=== PATIENT | female | born 1975 | race Caucasian/White ===

== ENCOUNTER → 2017-11-30 | Outpatient (CLI) | payer BC ==
[~2017-11-30] MED LIST: ACET1TAB43 PO; CLIN300C3 PO; CYCL10TA9 PO; HYDR1TAB PO; LISI1TAB10 PO; NAPR-1071 PO; NAPR-243 PO; NFPRILOC40 PO; THYROID MED PO
--- NOTE | 2017-11-30 10:39 | Diagnostic Imaging Report ---
INDICATION: Constipation and abdominal pain. TIME OF EXAM: 10:33 AM FINDINGS: There are surgical clips in the gallbladder fossa. The bowel gas pattern is nonobstructive. No pathologic calcifications are seen. No free air is identified. IMPRESSION: No acute feature is detected. Dictated by: Dictated on workstation # [id number]
== END ==
LOC: RAD 09:58
PROVIDERS: ATTEND Nurse Practitioner Family
DX: K59.00 Constipation, unspecified (principal)
CPT/HCPCS: 74019

== ENCOUNTER 2017-12-25 11:30 | Outpatient (CLI) | payer BC ==
[~2017-12-25] VITALS: Ht 162.6 cm; Wt 159.7 kg
[2017-12-25] MEDS ORDERED: OMEP40CA36 PO (12:10)
[2017-12-25] MEDS ORDERED: VITA1TAB17 PO (12:10)
[2017-12-25] MEDS ORDERED: CHOL200014 PO (12:10)
[2017-12-25] MEDS ORDERED: LEVO125T6 PO (12:10)
[2017-12-25] MEDS ORDERED: SPIR100T2 PO (12:10)
== END 2017-12-25 12:25 ==
LOC: PREOP 11:30
PROVIDERS: ATTEND Surgery
DX: Z01.818 Encounter for other preprocedural examination (principal); R19.4 Change in bowel habit; K21.9 Gastro-esophageal reflux disease without esophagitis

== ENCOUNTER 2017-12-31 08:24 | Day surgery (SDC) | payer BC ==
[~2017-12-31] VITALS: Ht 162.6 cm; Wt 159.7 kg
[~2017-12-31 08:24] MED LIST changes: +CHOL200014 PO; +LEVO125T6 PO; +OMEP40CA36 PO; +SPIR100T2 PO; +VITA1TAB17 PO
--- OUTSIDE RECORDS SUMMARY | 2017-12-31 08:28 | XMS REPORT | Continuity of Care Document ---
Author Author [facility] Organization [facility] Address Unknown Phone Unavailable Allergies Active Description Code Type Severity Reaction Onset Reported/Identified Relationship to Patient Clinical Status Yes No Known Drug Allergies [id number] Drug Allergy Unknown N/A 10/20/2008 Medications There is no data. Problems Date Dx Coded Attending Type Code Diagnosis Diagnosed By 02/03/2016 ANTHONY PERALES APRN Ot M54.12 RADICULOPATHY, CERVICAL REGION 02/04/2016 ANTHONY PERALES APRN Ot M54.12 12/03/2017 RAGHU LARA Ot K59.00 CONSTIPATION, UNSPECIFIED 12/13/2017 RAGHU LARA Ot K59.00 CONSTIPATION, UNSPECIFIED Procedures There is no data. Results There is no data. Encounters ACCT No. Visit Date/Time Discharge Status Pt. Type Provider Facility Loc./Unit Complaint [id number] 11/30/2017 09:58:00 11/30/2017 23:59:59 CLS Outpatient RAGHU LARA [facility] RAD ABD PAIN [id number] 02/03/2016 12:03:00 02/03/2016 13:20:00 DIS Emergency ANTHONY PERALES APRN [facility] ER SOA/CHEST PAIN [id number] 12/31/2017 09:30:00 PEN Preadmit KP BRENNAN, VIKKI Geiger [facility] ENDO CHANGE IN BOWEL/GERD
[2017-12-31 08:40] VITALS: BP 150/101
[2017-12-31] MEDS ORDERED: NS IV 500 ML 500 ML IV PRN (08:42)
[2017-12-31] MEDS ORDERED: HURRICAINE EXT TUBE (BENZOCAINE) XX PRN (08:45)
--- NOTE | 2017-12-31 09:32 | History & Physicial ---
History of Present Illness History of Present Illness Reason for visit/HPI to undergo an upper endoscopy regarding symptoms of reflux disease and concomitant colonoscopy to investigate a change in her bowel habits. Date of Admission 12/31/17 Date Seen by Provider: Dec 31, 2017 Time Seen by Provider: 09:31 I consulted on this patient on 12/31/17 09:31 Attending Physician Vikki Goodrich MD Admitting Physician Henry Christian DO Consult Allergies and Home Medications Allergies Coded Allergies: No Known Drug Allergies (Verified , 10/20/08) Home Medications Cholecalciferol (Vitamin D3) 2,000 Unit Tablet, 2,000 UNIT PO DAILY, (Reported) Levothyroxine Sodium 125 Mcg Tablet, 125 MCG PO DAILY, (Reported) Omeprazole 40 Mg Capsule.dr, 40 MG PO DAILY PRN for HEARTBURN, (Reported) Spironolactone 100 Mg Tablet, 100 MG PO DAILY, (Reported) Vitamin B Complex 1 Each Tablet, 1 EACH PO DAILY, (Reported) Past Fcqxfbu-Fnocnn-Noaznk Hx Patient Social History Marrital Status: single Employed/Student: employed Alcohol Use: Denies Use Recreational Drug Use: No Smoking Status: Never a Smoker Recent Foreign Travel: No Contact w/other who traveled: No Recent Hopitalizations: No Recent Infectious Disease Expo: No Seasonal Allergies Seasonal Allergies: Yes Surgeries Yes Section, Gallbladder Respiratory No Cardiovascular Yes Hypertension Neurological No Reproductive System Hx Reproductive Disorders: No Sexually Transmitted Disease: No Gastrointestinal Yes Gastroesophageal Reflux, Chronic Constipation Constitutional: no symptoms reported EENTM: no symptoms reported Respiratory: no symptoms reported Cardiovascular: no symptoms reported Gastrointestinal: see HPI Genitourinary: no symptoms reported Musculoskeletal: no symptoms reported Skin: no symptoms reported Psychiatric/Neurological: No Symptoms Reported Physical Exam Vital Signs Vital Signs - First Documented 12/31/17 08:40 Temp 98.2 Pulse 81 Resp 20 B/P (MAP) 150/101 (117) Pulse Ox 96 O2 Delivery Room Air Capillary Refill : General Appearance: No Apparent Distress HEENT: Normal ENT Inspection Neck: Normal Inspection Respiratory: Lungs Clear Cardiovascular: Regular Rate, Rhythm Gastrointestinal: Non Tender, Soft Rectal: Deferred Extremity: Normal Inspection Neurologic/Psychiatric: Alert, Oriented x3 Skin: Warm/Dry Assessment/Plan Assessment and Plan lady with symptoms of reflux disease and a change in bowel habits. 4 concomitant upper endoscopy with colonoscopy Problems: VIKKI GOODRICH MD Dec 31, 2017 9:32 am
--- NOTE | 2017-12-31 09:33 | Conscious Sedation/ASA ---
Conscious Sedation Pre-Proced Time Reviewed: 09:33 ASA Class: 2 Airway Mallampati Classification: (yuhaaviatam appropriate class) I. II. III, IV Lungs Heart ASA score ASA 1: a normal healthy patient ASA 2: a patient with a mild systemic disease (mid diabetes, controlled hypertension, obesity ASA 3: a patient with a severe systemic disease that limits activity (angina , COPD, prior Myocardial infarction) ASA 4: a patient with an incapacitating disease that is a constant threat to life (CHF, renal failure) ASA 5: a moribund patient not expected to survive 24 hrs. (ruptured aneurysm) ASA 6: a declared brain patient whose organs are being harvested. For emergent operations, add the letter E after the classification Grade 2 Sedation Plan: Discussed options with patient/fam Note The patient is an appropriate candidate to undergo the planned procedure, sedation, and anesthesia. The patient immediately re-assessed prior to indication. VIKKI GOODRICH MD Dec 31, 2017 9:33 am
[2017-12-31] MEDS ORDERED: MIDAZOLAM 2 MG/2 ML (VERSED) VIAL ONE ×6 (09:43→10:17)
[2017-12-31] MEDS ORDERED: HURRICAINE EXT TUBE (BENZOCAINE) ONE (09:43)
[2017-12-31] MEDS ORDERED: fentaNYL INJECTION 100 MCG/2 ML AMP ONE (09:43)
[2017-12-31] MEDS: MIDAZOLAM 2 MG/2 ML (VERSED) VIAL IVP PRN ×4 (10:07→10:18)
[2017-12-31] MEDS: fentaNYL INJECTION 100 MCG/2 ML AMP IVP PRN ×2 (10:08→10:17)
--- NOTE | 2017-12-31 10:33 | Endo Procedure Record ---
Endo Procedure Report Date of Procedure Last Colonoscopy: Yes (unsure) Dec 31, 2017 Surgeon (s) VIKKI GOODRICH MD Post Procedure/Op Diagnosis EGD: Hiatal hernia with grade 2 esophagitis Gastric contents indicating possible delayed gastric emptying Severe proximal gastritis Colonoscopy Procedure Performed EGD with antral biopsy for H. pylori Colonoscopy to cecum Description of Procedure Anesthesia Type: Conscious Sedation Specimen(s) collected/removed antral mucosa for H. pylori Description of the Procedure Indication for the procedures: This lady came in for an endoscopic assessment of symptoms of reflux and for concomitant colonoscopy, to investigate a change in her bowel habits. Informed consent was obtained after reviewing the procedures in detail. Description of the procedures. EGD: She was placed in left lateral decubitus position and her vital signs were monitored. Conscious sedation was achieved using Versed and fentanyl. The flexible gastroscope was introduced down the esophagus, past the stomach, into the proximal duodenum. Findings: Esophagus: Hiatal hernia with grade 2 esophagitis. Stomach: Retained gastric contents suggesting delayed gastric emptying Quite severe gastritis involving the proximal part of the body of the stomach. An antral biopsy was obtained for Helicobacter status. Duodenum: Normal She tolerated the procedure well and was turned around in preparation for colonoscopy. Impression: Symptoms of reflux disease Grade 2 esophagitis. Possible delayed gastric emptying. Severe gastritis. H. pylori status pending. Colonoscopy: Digital rectal examination was unremarkable. The colonoscope was then introduced in the rectum and advanced easily to the cecum. The quality of bowel preparation was excellent The scope was then withdrawn slowly and the mucosa examined in a systematic fashion. There was no abnormality She tolerated both procedures well and was taken to the recovery room in a stable condition. Impression: Change in bowel habits. Normal colonoscopy. Possible irritable bowel syndrome. Copies To: DELVIS LARA XAVIER M MD Dec 31, 2017 10:33 am
--- NOTE | 2017-12-31 10:34 | Discharge Inst-Simple/Standard ---
Discharge Inst-Standard Discharge Medications New, Converted or Re-Newed RX: Other Patient Instructions/Follow Up Plan of Care/Instructions/FU: To increase omeprazole to 40 mg twice a day. Follow-up with her primary physician Activity as Tolerated: Yes Discharge Diet: No Restrictions VIKKI GOODRICH MD Dec 31, 2017 10:34 am
[2017-12-31 10:50] VITALS: BP 157/79
[2017-12-31 11:20] VITALS: BP 153/87
[2017-12-31 11:35] VITALS: BP 153/87
== END 2017-12-31 11:35 | disposition home or self-care (01) ==
LOC: ENDO 08:24
PROVIDERS: ATTEND Surgery
DX: K29.60 Other gastritis without bleeding (principal); R19.4 Change in bowel habit; K21.0 Gastro-esophageal reflux disease with esophagitis; K44.9 Diaphragmatic hernia without obstruction or gangrene; I10 Essential (primary) hypertension; Z79.899 Other long term (current) drug therapy
CPT/HCPCS: 84703

== ENCOUNTER → 2019-01-28 | Outpatient (CLI) | payer BC ==
[~2019-01-28] MED LIST changes: -SPIR100T2 PO; +SPIR100T4 PO
--- NOTE | 2019-01-28 12:53 | Diagnostic Imaging Report ---
PROCEDURE: CT urinary tract, rule out kidney stone. TECHNIQUE: Multiple contiguous axial images were obtained through the abdomen and pelvis without the use of intravenous contrast. INDICATION: Right posterior pain. Patient has history of kidney stones. COMPARISON: No prior studies are available for comparison. FINDINGS: The lung bases are clear. The liver demonstrates generalized low density consistent with hepatic steatosis. No discrete liver mass is seen. The gallbladder is surgically absent. No biliary ductal dilatation is identified. The pancreas and spleen are unremarkable. There is a small rounded low density involving the right adrenal gland measuring 18 mm. This most likely represents a small adrenal adenoma. Left adrenal gland is unremarkable. No definite renal calculi or evidence of hydronephrosis is seen. No ureteral calculi are detected. The bladder is unremarkable. Pelvic calcifications are consistent with phleboliths. The aorta is nonaneurysmal. The small and large bowel loops are normal in caliber. The appendix is visualized in the right lower quadrant and appears unremarkable. There is no ascites. The uterus is unremarkable. No inflammatory process is seen. IMPRESSION: 1. Hepatic steatosis. 2. No evidence of urinary tract calculi or obstruction. No acute feature is detected in the abdomen or pelvis. Dictated by: Dictated on workstation # [id number]
== END ==
LOC: RAD 12:24
PROVIDERS: ATTEND Internal Medicine
DX: K76.0 Fatty (change of) liver, not elsewhere classified (principal); Z90.49 Acquired absence of other specified parts of digestive tract
CPT/HCPCS: 74176

== ENCOUNTER → 2019-06-10 | Outpatient (CLI) | payer BC ==
--- NOTE | 2019-06-10 15:30 | Diagnostic Imaging Report ---
INDICATION: Abdominal pain and constipation. TIME OF EXAM: 12:45 p.m. FINDINGS: No free air is seen. There are surgical clips in the right upper quadrant. Bowel gas pattern appears nonobstructed. No significant stool load is identified. No pathologic calcifications are seen. IMPRESSION: No acute abnormality is detected. Dictated by: Dictated on workstation # [id number]
== END ==
LOC: RAD 12:30
PROVIDERS: ATTEND Nurse Practitioner Family
DX: K59.00 Constipation, unspecified (principal); R10.9 Unspecified abdominal pain
CPT/HCPCS: 74019

== ENCOUNTER 2020-10-04 18:51 | Emergency (ER) | payer BC ==
[~2020-10-04] VITALS: Ht 162.6 cm; Wt 172.7 kg
[~2020-10-04 18:51] MED LIST changes: +OMEP40CA27 PO; -OMEP40CA36 PO
[2020-10-04 19:15] VITALS: BP 145/86
[2020-10-04 20:04] LABS: BASOPHILS % (AUTO) 1 % (0-10); EOSINOPHILS # (AUTO) 0.1 10^3/uL (0.0-0.3); EOSINOPHILS % (AUTO) 1 % (0-10); HEMATOCRIT 44 % (35-52); HEMOGLOBIN 13.9 g/dL (11.5-16.0); LYMPHOCYTES # (AUTO) 2.1 10^3/uL (1.0-4.0); LYMPHOCYTES % (AUTO) 33 % (12-44); MEAN CORPUSCULAR HEMOGLOBIN 27 pg (25-34); MEAN CORPUSCULAR HGB CONC 31 g/dL (32-36); MEAN CORPUSCULAR VOLUME 85 fL (80-99); MEAN PLATELET VOLUME 8.7 fL (9.0-12.2); MONOCYTES # (AUTO) 0.4 10^3/uL (0.0-1.0); MONOCYTES % (AUTO) 6 % (0-12); NEUTROPHILS # (AUTO) 3.9 10^3/uL (1.8-7.8); NEUTROPHILS % (AUTO) 60 % (42-75); PLATELET COUNT 316 10^3/uL (130-400); WHITE BLOOD COUNT 6.5 10^3/uL (4.3-11.0)
--- NOTE | 2020-10-04 20:23 | Diagnostic Imaging Report ---
Portable erect AP chest at 758 hours. INDICATION: Covid positive, dizziness, shortness of breath. FINDINGS: The heart is mildly enlarged and the heart does seem somewhat more prominent than noted on the prior exam of 02/03/2016. The central pulmonary vascularity is not engorged and there is no evidence for failure at this time. The lungs are generally clear. There is no sign of pneumonia or pleural effusion. The mediastinum is not widened. The osseous structures are intact. IMPRESSION: There is mild cardiomegaly but there is no evidence for active disease. Dictated by: Dictated on workstation # [id number]
[2020-10-04 20:30] LABS: FIBRIN DEGRADATION PRODUCTS 0.37 UG/ML (0.00-0.49); PROTHROMBIN TIME PATIENT 13.8 SEC (12.2-14.7)
--- NOTE | 2020-10-04 20:32 | ED Respiratory ---
General Chief Complaint: Respiratory Problems Stated Complaint: COVID POSITIVE - SOA/DIZZY Source: patient History of Present Illness Date Seen by Provider: Oct 04, 2020 Time Seen by Provider: 19:07 Initial Comments PT ARRIVES VIA POV FROM HOME STATES SHE HAS BEEN ILL FOR 1 WEEK WITH COVID-19 SYMPTOMS BEGAN LAST 09/27/20 WENT TO [facility] ON SUNDAY AND TESTED POSITIVE FOR COVID-19. WAS GIVEN RX FOR ALBUTEROL INHALER AND DECADRON 4 MG DAILY AND TOLD TO TAKE 81 MG ASPIRIN DAILY USED INHALER X 1 TODAY. 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 + DIARRHEA X 5-6 TODAY C/O FATIGUE NO ABDOMINAL PAIN NO LOSS OF TASTE OR SMELL SYMPTOMS GRADUALLY GETTING A LITTLE WORSE, BUT HAS NOT SOUGHT CARE WITH ANYONE SINCE SHE WAS DIAGNOSED. NO HX OF RESPIRATORY PROBLEMS PT IS ON DAILY PROPHYLACTIC ANTIBIOTICS FOR CHRONIC SORES/ABSCESSES, ETC. TAKES CLINDAMYCIN AND RIFAMPIN DAILY. PCP: DR. LARA Allergies and Home Medications Allergies Coded Allergies: No Known Drug Allergies (Verified , 10/20/08) Home Medications Benzonatate 100 Mg Capsule, 200 MG PO TID Prescribed by: MYCHAL MANDEL on 10/04/202149 Cholecalciferol (Vitamin D3) 2,000 Unit Tablet, 2,000 UNIT PO DAILY, (Reported) Fluticasone/Salmeterol 1 Each Blst.w.dev, 1 EACH IH BID Prescribed by: MYCHAL MANDLE on 10/04/202147 Guaifenesin/Dextromethorphan 1 Each Tbmp.12hr, 1 EACH PO BID Prescribed by: MYCHAL MANDEL on 10/04/202149 Levothyroxine Sodium 125 Mcg Tablet, 125 MCG PO DAILY, (Reported) Omeprazole 40 Mg Capsule.dr, 40 MG PO DAILY PRN for HEARTBURN, (Reported) Spironolactone 100 Mg Tablet, 100 MG PO DAILY, (Reported) Vitamin B Complex 1 Each Tablet, 1 EACH PO DAILY, (Reported) Patient Home Medication List Home Medication List Reviewed: Yes Review of Systems Review of Systems Constitutional: see HPI, chills, dizziness, fever, malaise, weakness EENTM: nose congestion Respiratory: see HPI, cough, dyspnea on exertion, short of breath Cardiovascular: see HPI, chest pain Gastrointestinal: see HPI; No abdominal pain; diarrhea, loss of appetite, nausea; No vomiting Genitourinary: no symptoms reported Musculoskeletal: see HPI (BODY ACHES) Skin: see HPI Psychiatric/Neurological: See HPI, Headache Hematologic/Lymphatic: No Symptoms Reported Immunological/Allergic: no symptoms reported Past Qsidzvy-Ryquou-Bhcwmu Hx Past Med/Social Hx: Reviewed and Corrections made Patient Social History Recent Hopitalizations: No Seasonal Allergies Seasonal Allergies: Yes Past Medical History Surgeries: Yes (UTERINE ABLATION; D&C; X 1;EGD/COLONOSCOPY) Section, Gallbladder Respiratory: No Cardiac: Yes Hypertension Neurological: No Reproductive Disorders: Yes (S/P UTERINE ABLATION WITH D&C) Female Reproductive Disorders: Menstrual Problems Sexually Transmitted Disease: No Genitourinary: No Gastrointestinal: Yes Gastroesophageal Reflux, Chronic Constipation Musculoskeletal: No Endocrine: Yes (MORBID OBESITY) Diabetes, Non-Insulin dep HEENT: Yes (DENTAL ABSCESS) Cancer: No Psychosocial: No Integumentary: Yes (CHRONIC SKIN WOUNDS/ABSCESSES/CELLULITIS) Physical Exam Vital Signs - First Documented 10/04/20 19:15 Temp 36.0 Pulse 104 Resp 22 B/P (MAP) 145/86 (105) Pulse Ox 96 O2 Delivery Room Air Capillary Refill : Height: 5'4.00" Weight: 352lbs. 0.0oz. [id number]; 60.4 BMI Method:Stated General Appearance: no apparent distress, obese, other (NO COUGH OR DYSPNEA, DOES NOT APPEAR ACUTELY ILL) HEENT: PERRL/EOMI Neck: normal inspection Respiratory: normal breath sounds, no respiratory distress, no accessory muscle use Cardiovascular: regular rate, rhythm, no murmur Gastrointestinal: non tender, soft Extremities: normal inspection, no pedal edema Neurologic/Psychiatric: yard jacker II-XII nml as tested, no motor/sensory deficits, alert, normal mood/affect, oriented x 3 Skin: normal color, warm/dry Focused Exam Lactate Level 10/04/20 19:30: Lactic Acid Level 1.48 Lactic Acid Level Laboratory Tests Test 10/04/20 19:30 Lactic Acid Level 1.48 MMOL/L (0.50-2.00) Progress/Results/Core Measures Suspected Sepsis SIRS Temperature: Pulse: Respiratory Rate: Laboratory Tests 10/04/20 19:30: White Blood Count 6.5 Blood Pressure / Mean: 10/04/20 19:30: Lactic Acid Level 1.48 Laboratory Tests 10/04/20 19:30: Creatinine 0.73, INR Comment 1.0, Platelet Count 316, Total Bilirubin 0.3 Results/Orders Lab Results Laboratory Tests Test 10/04/20 19:30 Range/Units White Blood Count 6.5 4.3-11.0 10^3/uL Red Blood Count 5.21 H 3.80-5.11 10^6/uL Hemoglobin 13.9 11.5-16.0 g/dL Hematocrit 44 35-52 % Mean Corpuscular Volume 85 80-99 fL Mean Corpuscular Hemoglobin 27 25-34 pg Mean Corpuscular Hemoglobin Concent 31 L 32-36 g/dL Red Cell Distribution Width 15.3 H 10.0-14.5 % Platelet Count 316 130-400 10^3/uL Mean Platelet Volume 8.7 L 9.0-12.2 fL Immature Granulocyte % (Auto) 0 % Neutrophils (%) (Auto) 60 42-75 % Lymphocytes (%) (Auto) 33 12-44 % Monocytes (%) (Auto) 6 0-12 % Eosinophils (%) (Auto) 1 0-10 % Basophils (%) (Auto) 1 0-10 % Neutrophils # (Auto) 3.9 1.8-7.8 10^3/uL Lymphocytes # (Auto) 2.1 1.0-4.0 10^3/uL Monocytes # (Auto) 0.4 0.0-1.0 10^3/uL Eosinophils # (Auto) 0.1 0.0-0.3 10^3/uL Basophils # (Auto) 0.0 0.0-0.1 10^3/uL Immature Granulocyte # (Auto) 0.0 0.0-0.1 10^3/uL Erythrocyte Sedimentation Rate 28 H 0-20 MM/HR Prothrombin Time 13.8 12.2-14.7 SEC INR Comment 1.0 0.8-1.4 Activated Partial Thromboplast Time 29 24-35 SEC D-Dimer 0.37 0.00-0.49 UG/ML Sodium Level 140 135-145 MMOL/L Potassium Level 3.7 3.6-5.0 MMOL/L Chloride Level 104 98-107 MMOL/L Carbon Dioxide Level 23 21-32 MMOL/L Anion Gap 13 5-14 MMOL/L Blood Urea Nitrogen 6 L 7-18 MG/DL Creatinine 0.73 0.60-1.30 MG/DL Estimat Glomerular Filtration Rate > 60 BUN/Creatinine Ratio 8 Glucose Level 124 H 70-105 MG/DL Lactic Acid Level 1.48 0.50-2.00 MMOL/L Calcium Level 9.9 8.5-10.1 MG/DL Corrected Calcium 9.7 8.5-10.1 MG/DL Magnesium Level 2.0 1.6-2.4 MG/DL Total Bilirubin 0.3 0.1-1.0 MG/DL Aspartate Amino Transf (AST/SGOT) 54 H 5-34 U/L Alanine Aminotransferase (ALT/SGPT) 90 H 0-55 U/L Alkaline Phosphatase 94 40-136 U/L Total Creatine Kinase 33 29-168 U/L Creatine Kinase MB 0.4 <6.6 NG/ML Myoglobin 17.2 10.0-92.0 NG/ML Troponin I < 0.028 <0.028 NG/ML C-Reactive Protein High Sensitivity 2.39 H 0.00-0.50 MG/DL B-Type Natriuretic Peptide < 10.0 <100.0 PG/ML Total Protein 8.1 6.4-8.2 GM/DL Albumin 4.3 3.2-4.5 GM/DL Procalcitonin 0.03 <0.10 NG/ML Serum Test, Qualitative NEGATIVE NEGATIVE Micro Results Microbiology 10/04/20 Influenza Types A,B Antigen (ORTIZ) - Final, Complete My Orders Orders - MYCHAL MANDEL DO Ed Iv/Invasive Line Start (10/04/20 19:07) Ekg Tracing (10/04/20 19:07) O2 (10/04/20 19:07) Monitor-Rhythm Ecg Trace Only (10/04/20 19:07) Chest 1 View, Ap/Pa Only (10/04/20 19:07) BNP (10/04/20 19:07) Cbc With Automated Diff (10/04/20:) Comprehensive Metabolic Panel (10/04/20 19:07) Creatine Kinase (10/04/20 19:07) Creatine Kinase Mb (10/04/20 19:07) Hs C Reactive Protein (10/04/20 19:07) Fibrin Degradation Products (10/04/20 19:07) Hcg,Qualitative Serum (10/04/20 19:07) Lactic Acid Analyzer (10/04/20 19:07) Magnesium (10/04/20 19:07) Procalcitonin (Pct) (10/04/20 19:07) Protime With Inr (10/04/20 19:07) Partial Thromboplastin Time (10/04/20 19:07) Blood Culture (10/04/20 19:07) Influenza A And B Antigens (10/04/20 19:07) Erythrocyte Sedimentation Rate (10/04/20 19:07) Myoglobin Serum (10/04/20 19:07) Troponin I (10/04/20 19:07) Dexamethasone Injection (Decadron Injec (10/04/20 19:45) Medications Given in ED Current Medications Medications Dose Ordered Sig/Vasquez Route Start Time Stop Time Status Last Admin Dose Admin Dexamethasone Sodium Phosphate 6 mg ONCE ONCE IV 10/04/20 19:45 10/04/20 19:46 DC 10/04/20 19:44 6 MG Vital Signs/I&O 10/04/20 19:15 Temp 36.0 Pulse 104 Resp 22 B/P (MAP) 145/86 (105) Pulse Ox 96 O2 Delivery Room Air Capillary Refill : Progress Note : Progress Note PLACED IN ISOLATION ROOM PPE WORN AT ALL TIMES PT ADVISED OF CONTINUED NEED FOR QUARANTINE FOR A MINIMUM OF 1 MORE WEEK, POSSIBLY LONGER, BASED ON SYMPTOMS AND CLEARANCE FROM HEALTH DEPT. NO HYPOXIA NO DYSPNEA NO COUGH UNEVENTFUL ER STAY ECG Initial ECG Impression Date: Oct 04, 2020 Initial ECG Impression Time: 19:23 Initial ECG Rate: 97 Initial ECG Impression: Nonspecific Changes Diagnostic Imaging Comments CXR--PER RADIOLOGIST REPORT AT 2030 IMPRESSION: There is mild cardiomegaly but there is no evidence for active disease. Reviewed: Reviewed by Me Departure Impression Primary Impression: COVID-19 virus infection Disposition: HOME, SELF-CARE Condition: Stable Departure-Patient Inst. Referrals: DELVIS LARA DO (PCP/Family) Primary Care Physician Patient Instructions: Coronavirus Disease 2019 (COVID-19) (DC) Add. Discharge Instructions: CONTINUE YOUR CURRENT MEDICATIONS PRESCRIBED TYLENOL AND MOTRIN NEEDED FOR PAIN OR FEVER LOTS OF CLEAR LIQUIDS FOLLOW UP WITH YOUR DR IN 1 WEEK IF NO BETTER, RETURN TO ER IF WORSE CONTINUE QUARANTINE FOR YOURSELF AND ALL HOUSEHOLD MEMBERS FOR A MINIMUM OF 1 WEEK, OR LONGER IF STILL SYMPTOMATIC--NEED CLEARANCE FROM DR OR HEALTH DEPARTMENT All discharge instructions reviewed with patient and/or family. Voiced un derstanding. Scripts Benzonatate (TESSALON PERLES) 100 Mg Capsule 200 MG PO TID, #50 CAP Prov: MYCHAL MANDEL DO 10/04/20 Guaifenesin/Dextromethorphan (Mucinex Dm ER 1,200-60 mg Tab) 1 Each Tbmp.12hr 1 EACH PO BID, #20 EA Prov: MYCHAL MANDEL DO 10/04/20 Fluticasone/Salmeterol (Advair 250-50 Diskus) 1 Each Blst.w.dev 1 EACH IH BID, #1 EA Prov: MYCHAL MANDEL DO 10/04/20 MYCHAL MANDEL DO Oct 04, 2020 20:32
[2020-10-04 20:35] LABS: ALANINE AMINOTRANSFERASE 90 U/L (0-55); ALBUMIN 4.3 GM/DL (3.2-4.5); ALKALINE PHOSPHATASE 94 U/L (40-136); BILIRUBIN,TOTAL 0.3 MG/DL (0.1-1.0); BUN/CREATININE RATIO 8; CALCIUM 9.9 MG/DL (8.5-10.1); CARBON DIOXIDE 23 MMOL/L (21-32); CREATINE KINASE 33 U/L (29-168); CREATININE SERUM 0.73 MG/DL (0.60-1.30); GFR ESTIMATED > 60; GLUCOSE 124 MG/DL (70-105); TOTAL PROTEIN 8.1 GM/DL (6.4-8.2)
[2020-10-04 20:46] LABS: ERYTHROCYTE SEDIMENTATION RATE 28 MM/HR (0-20)
[2020-10-04 20:54] LABS: CREATINE KINASE MB 0.4 NG/ML (<6.6)
[2020-10-04 21:21] LABS: CHLORIDE 104 MMOL/L (98-107); POTASSIUM 3.7 MMOL/L (3.6-5.0); SODIUM 140 MMOL/L (135-145)
[2020-10-04] MEDS ORDERED: FLUT1DIS26 IH (21:48)
[2020-10-04] MEDS ORDERED: GUAI1TBM19 PO (21:50)
[2020-10-04] MEDS ORDERED: BENZ100C18 PO (21:50)
== END 2020-10-04 22:05 | disposition home or self-care (01) ==
LOC: EDUNIT# 18:51 → ER 18:52
DX: U07.1 COVID-19 (principal); E66.01 Morbid (severe) obesity due to excess calories; K21.9 Gastro-esophageal reflux disease without esophagitis; Z68.44 Body mass index [BMI] 60.0-69.9, adult
CPT/HCPCS: 36415; 71045; 80053; 82550; 82553; 83605; 83735; 83874; 83880; 84145; 84484; 84703; 85025; 85379; 85610; 85652; 85730; 86141; 87040; 87804; 93005; 93041

== ENCOUNTER → 2021-01-19 | Outpatient (CLI) | payer BC ==
[~2021-01-19] MED LIST changes: +BENZ100C18 PO; +FLUT1DIS26 IH; +GUAI1TBM19 PO
--- NOTE | 2021-01-19 11:46 | Diagnostic Imaging Report ---
INDICATION: Dyspnea on exertion. TECHNIQUE: Two view chest at 11:02 a.m. CORRELATION STUDY: 10/04/2020 FINDINGS: Heart size remains enlarged. Vasculature overall within normal limits. The lungs are clear with no consolidating infiltrate. There is no significant pleural effusion or pneumothorax. Slight accentuated thoracic kyphosis and degenerative changes with bridging osteophytes of the spine. IMPRESSION: 1. Borderline cardiac enlargement without failure. Dictated by: Dictated on workstation # [id number]
== END ==
LOC: RAD 10:30
PROVIDERS: ATTEND Nurse Practitioner Family
DX: R06.09 Other forms of dyspnea (principal)
CPT/HCPCS: 71046

== ENCOUNTER → 2021-01-21 | Outpatient (CLI) | payer BC ==
[~2021-01-21] MED LIST changes: +CATHETER FLUSH 10 ML SYR IV PRN; +HOLD METFORMIN - RECEIVED CONTRAST 20 ML VIAL IV SCH; +IOHEXOL 350 MG/ML 100 ML (OMNIPAQUE 350) VIAL IV ONE; +NS 100 ML (IVPB) BAG IV ONE
--- NOTE | 2021-01-21 12:43 | Diagnostic Imaging Report ---
PROCEDURE: CT angiography of the chest with contrast. TECHNIQUE: Multiple contiguous axial images were obtained through the chest after uneventful bolus administration of intravenous contrast. 3D reconstructed CTA MIP acquisitions were also performed. Auto Exposure Controls were utilized during the CT exam to meet ALARA standards for radiation dose reduction. INDICATION: Dyspnea and elevated D-dimer. The quality of the study is significantly compromised due to poor pulmonary arterial opacification. No definite central pulmonary emboli are detected but there is evaluation of the lobar, segmental and subsegmental branches cannot be performed due to a lack of opacification. Thoracic aorta is normal caliber. There is no dissection. There is no pericardial or pleural fluid. No pulmonary infiltrates are seen. Upper abdomen demonstrates hepatic steatosis. IMPRESSION: Significantly limited study for evaluation of pulmonary emboli. No definite central emboli are detected. If there is continued high clinical index of suspicion for PE, perhaps a nuclear medicine perfusion study could be performed. Dictated by: Dictated on workstation # [id number]
== END ==
LOC: RAD
PROVIDERS: ATTEND Nurse Practitioner Family
DX: R79.89 Other specified abnormal findings of blood chemistry (principal); R06.00 Dyspnea, unspecified
CPT/HCPCS: 71275

== ENCOUNTER → 2021-03-04 | Outpatient (CLI) | payer BC ==
[~2021-03-04] MED LIST changes: -CATHETER FLUSH 10 ML SYR IV PRN; -HOLD METFORMIN - RECEIVED CONTRAST 20 ML VIAL IV SCH; -IOHEXOL 350 MG/ML 100 ML (OMNIPAQUE 350) VIAL IV ONE; -NS 100 ML (IVPB) BAG IV ONE
--- NOTE | 2021-03-04 14:11 | Diagnostic Imaging Report ---
PROCEDURE: US Venous Lower Ext [place]. TECHNIQUE: Multiple real-time grayscale images were obtained over the lower extremities in various projections, bilaterally. Additional duplex Doppler and color Doppler images were also obtained. INDICATION: Left leg pain; positive D dimer EXAMINATIONS: Both grayscale and color Doppler imaging of the deep veins of the lower extremities were performed with waveform analysis. FINDINGS: There is no intraluminal filling defect. Normal continuous flow is seen throughout the deep venous systems of both legs, and there is normal response to augmentation. The deep veins compress normally. IMPRESSION: No ultrasound evidence of deep venous thrombosis in either lower extremity. Dictated by: Dictated on workstation # [id number]
== END ==
LOC: RAD 12:55
PROVIDERS: ATTEND Nurse Practitioner Family
DX: M79.605 Pain in left leg (principal); R79.1 Abnormal coagulation profile; R25.2 Cramp and spasm
CPT/HCPCS: 93970